=== PATIENT | female | born 1975 | race Caucasian/White ===

== ENCOUNTER → 2022-06-05 | Outpatient (CLI) | payer BC ==
[2022-06-06 04:06] LABS: THYROID PEROXIDASE (TPO) AB 55 IU/mL (0-34)
[2022-06-07 06:07] LABS: THYROTROPIN RECEPTOR AB <1.10 IU/L (0.00-1.75)
[2022-06-07 08:08] LABS: THYROID STIM IMMUNOGLOBULIN <0.10 IU/L (0.00-0.55)
== END | disposition home or self-care (01) ==
LOC: LAB 09:15
PROVIDERS: ATTEND Family Medicine
DX: E06.3 Autoimmune thyroiditis (principal); R41.3 Other amnesia; R53.83 Other fatigue

== ENCOUNTER → 2022-06-26 | Outpatient (CLI) | payer BC ==
[2022-06-26 08:54] LABS: FREE T4 1.46 ng/dl (0.89-1.76); THYROID STIM HORMONE (HS) 1.587 uIU/ml (0.550-4.780)
== END | disposition home or self-care (01) ==
LOC: LAB 08:07
PROVIDERS: ATTEND Family Medicine
DX: E06.3 Autoimmune thyroiditis (principal)

== ENCOUNTER → 2022-07-16 | Outpatient (CLI) | payer BC | LOC: RAD 07-10 09:00 | PROVIDERS: ATTEND Family Medicine | DX: K21.9 Gastro-esophageal reflux disease without esophagitis (principal) ==

== ENCOUNTER → 2022-08-14 | Outpatient (CLI) | payer BC | END | disposition home or self-care (01) | LOC: LAB 08:11 | PROVIDERS: ATTEND Family Medicine | DX: R53.83 Other fatigue (principal) ==

== ENCOUNTER 2022-12-21 16:06 | Emergency (ER) | payer BC ==
[~2022-12-21] VITALS: Ht 157.4 cm; Wt 99.8 kg
[2022-12-21] MEDS ORDERED: AUGMENTIN 500500 M1 PO (17:00)
== END 2022-12-21 18:33 | disposition home or self-care (01) ==
LOC: ED 16:06
DX: S51.812A Laceration without foreign body of left forearm, initial encounter (principal); S81.812A Laceration without foreign body, left lower leg, initial encounter; W54.0XXA Bitten by dog, initial encounter; Y93.89 Activity, other specified; Y92.89 Other specified places as the place of occurrence of the external cause; Y99.8 Other external cause status

== ENCOUNTER → 2023-03-31 | Outpatient (CLI) | payer BC ==
[~2023-03-31] MED LIST: AUGMENTIN 500500 M1 PO
== END | disposition home or self-care (01) ==
LOC: MAMMO 14:44
PROVIDERS: ATTEND Nurse Practitioner
DX: Z12.31 Encounter for screening mammogram for malignant neoplasm of breast (principal)